=== PATIENT | male | born 1995 | race Caucasian/White ===

== ENCOUNTER 2017-05-12 04:11 | Emergency (ER) | payer BC ==
[~2017-05-12] VITALS: Ht 195.6 cm; Wt 84.4 kg
[2017-05-12 04:15] VITALS: TEMP 37; Ht 195.6 cm; Wt 84.4 kg
[2017-05-12] MEDS ORDERED: RANITIDINE HCL 50 MG/100 ML D5W IV STA (04:27)
[2017-05-12] MEDS ORDERED: DEXAMETHASONE SOD INJ 4 MG/ML VIAL IV STA (04:27)
[2017-05-12] MEDS ORDERED: DiphenhydrAMINE HCL 50 MG/ML VIAL IV STA (04:27)
--- NOTE | 2017-05-12 04:40 | EMERGENCY ROOM VISIT NOTE ---
History First contact with patient: 04:18 Chief Complaint: ALLERGIC REACTION Stated Complaint: BODY RASH,HIVES History of Present Illness The patient is a 21 year old male who presents to the Emergency Room with complaints of a rash which began 2 days ago. The patient states that Tuesday, he first noticed a red rash on his arms and trunk. He did not have any itchiness or discomfort at that time. He states that the rash went away within a few hours, but returned today approximately 3 hours ago. He states the rashes on his arms, legs, abdomen and back. He states the rash is very itchy. He denies any shortness of breath, difficulty swallowing or nausea/ vomiting. He denies any swelling of the face. He denies any known allergens or history of allergic reactions. He denies any new medications, new foods, or other new environmental exposures. Review of Systems A complete 10 point review of systems was reviewed with the patient with pertinent positives and negatives as per history of present illness. All else were negative. Social History Smoking Status: Never Smoker Current/Historical Medications No Active Prescriptions or Reported Meds Physical Exam Vital Signs Date Time Temp Pulse Resp B/P (MAP) Pulse Ox O2 Delivery O2 Flow Rate FiO2 05/12/17 04:37 Room Air 05/12/17 04:15 37.0 100 18 123/66 97 Room Air Physical Exam VITALS: Vitals are noted on the nurse's note and reviewed by myself. Vital signs stable. GENERAL: This is a 21-year-old male, in no acute distress, nondiaphoretic, well- developed well-nourished. SKIN: There are erythematous, raised urticarial lesions over bilateral arms, bilateral legs, abdomen and back, with most significant coalescing urticaria on the back. HEENT: No perioral or periorbital edema. Airway patent. HEART: Regular rate and rhythm without murmurs gallops or rubs. LUNGS: Clear to auscultation bilaterally without wheezes, rales or rhonchi. NEURO: Patient was alert and oriented to person place and time. Medical Decision & Procedures Medications Administered Medications (Trade) Dose Ordered Sig/Rhonda Route Start Time Stop Time Status Last Admin Dose Admin Dexamethasone Sodium Phosphate (Decadron Inj) 10 mg NOW STAT IV 05/12/17 04:27 05/12/17 04:28 DC 05/12/17 04:36 10 MG Diphenhydramine HCl (Benadryl Inj) 50 mg NOW STAT IV 05/12/17 04:27 05/12/17 04:28 DC 05/12/17 04:36 50 MG Ranitidine HCl (zANTac IV) 50 mg NOW STAT IV 05/12/17 04:27 05/12/17 04:28 DC 05/12/17 04:36 50 MG ED Course The patient was evaluated as above. Labs were drawn and IV access was obtained. Patient was medicated with 10 mg Decadron, 50 mg Benadryl and 50 mg Zantac IV. Patient was reevaluated and stated he felt much better. His rash has improved significantly. Discharge instructions were reviewed with the patient. The patient verbalized understanding of my assessment and treatment plan and was discharged home in good condition. Medical Decision Differential diagnosis includes allergic reaction, idiopathic urticaria, Bermudez -Nemesio syndrome, contact dermatitis, among others. The patient is a and 21-year-old male who presents today complaining of hives. Exam revealed diffuse urticaria. There are no other symptoms of an allergic reaction. The patient denies any history of allergic reactions. He denies any new exposures. I am unsure what caused his urticaria. He was given IV Decadron , Benadryl and Zantac. On reevaluation he had significant improvement of his symptoms and his rash. He will be placed on prednisone and instructed to use Benadryl and Zantac as needed. He may follow-up with an infrastructure director or manager psychology for further evaluation if desired. The patient was educated to return to the emergency department for any worsening of their current condition or new/concerning symptoms. Medication Reconcilliation Current Medication List: was personally reviewed by [facility] Blood Pressure Screening Patient's blood pressure: Normal blood pressure Impression Primary Impression: Urticaria Departure Information Dispostion Home / Self-Care Condition GOOD Prescriptions Prednisone (Prednisone) 50 Mg Tab 50 MG PO DAILY for 4 Days, #4 TAB Prov: Miladys Scott .MANNY 05/12/17 Referrals No Doctor, Assigned (PCP) Patient Instructions My [facility] Additional Instructions You have been treated in the Emergency Department for urticaria (hives). This may be due to an allergic reaction. You should take Benadryl (diphenhydramine) 25-50 mg orally every 6 hours for the next few days or until symptoms have fully resolved. This medication is over -the-counter and you will NOT need a prescription to purchase this at your local pharmacy. You should take Zantac (ranitidine) 75 mg orally once daily for the next few days. This medication is [id number] and you will NOT need a prescription to purchase this at your local pharmacy. You have been prescribed Prednisone 50 mg to be taken orally once a day for the next 4 days. This is an anti-inflammatory medicine to be used to help minimize your symptoms. You should take the COMPLETE course of the medication. Follow-up with [facility] for further evaluation. You may also follow-up with a manager psychology or infrastructure director if symptoms are persistent. Return to the Emergency Department if your current symptoms worsen despite treatment course outlined above, or if you develop any of the following symptoms : wheezing, tongue or face swelling, tightness in your throat, shortness of breath, or fainting.
[2017-05-12] MEDS ORDERED: PRED50TA PO (05:27)
[2017-05-12 05:41] VITALS: BP 131/87; PULSE 87; O2SAT 98
== END 2017-05-12 05:42 | disposition home or self-care (01) ==
LOC: C.EDB 04:13 → C.EDA 05:42
DX: L50.9 Urticaria, unspecified (principal)